=== PATIENT | female | born 1940 | race Caucasian/White ===

== ENCOUNTER 2019-12-10 17:55 | Emergency (ER) | payer MEDICARE ==
[~2019-12-10] VITALS: Ht 152.4 cm; Wt 54.0 kg
[2019-12-10 18:17] VITALS: BP 132/100
[2019-12-10] MEDS ORDERED: PLEASE ENTER ALLERGIES MC SCH (18:30)
--- NOTE | 2019-12-10 18:33 | NUR ---
PT STATES SUDDEN ONSET OF RT SIDED CP TODAY WELL A FEVER OF 100.8 AT HOME. 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 PT STATES SHE BELIEVES CP MAY BE FROM [place]ING [place]. PT WITH GREATLY DIMINSHED LUNG SOUNDS ON RT. IV STARTED, PT PLACED ON MONITORS. EKG COMPLETED. PT TO IMAGING. AWAITING LAB AND IMAGING RESULTS. PT IN NO DISTRESS. WILL FOLLOW ORDERS.
[2019-12-10 18:38] LABS: MEAN CORPUSCULAR HEMOGLOBIN 32.4 pg (27.0-34.8); MEAN CORPUSCULAR HGB CONC 33.5 g/dL (32.4-35.8); MEAN CORPUSCULAR VOLUME 96.9 fL (80-100); MEAN PLATELET VOLUME 7.4 fL (7.4-10.4); PLATELET COUNT 240 x10^3/uL (130-400); RED BLOOD COUNT 3.82 x10^6/uL (3.82-5.3); RED CELL DISTRIBUTION WIDTH 14.9 % (9.6-15.2)
[2019-12-10 18:47] LABS: ALANINE AMINOTRANSFERASE 18 U/L (12-78); ALBUMIN 3.6 g/dL (3.4-5.0); ANION GAP 7 mmol/L (5-15); CALCIUM 8.4 mg/dL (8.5-10.1); CHLORIDE 106 mmol/L (98-107); CREATININE 1.28 mg/dL (0.55-1.02)
[2019-12-10 18:51] LABS: ALKALINE PHOSPHATASE 62 U/L (45-117); BILIRUBIN,TOTAL 0.9 mg/dL (0.2-1.0); TOTAL PROTEIN 7.2 g/dL (6.4-8.2); TROPONIN I < 0.015 ng/mL (0.000-0.045)
--- NOTE | 2019-12-10 19:00 | NUR ---
REPORT GIVEN TO ROBERT ESPINO.
[2019-12-10 19:21] LABS: MD YES
[2019-12-10] MEDS ORDERED: SODIUM CHLORIDE FLUSH 10ML SYR IVF ONE (19:30)
[2019-12-10 19:31] LABS: BAND#(MANUAL) 0.73 x10^3/uL; BANDS%(MANUAL) 4 % (0-7); LYMPH#(MANUAL) 0.18 x10^3/uL (1-3.4); LYMPHS% (MANUAL) 1 % (22-44); METAMYELOCYTES# (MANUAL) 0.18 x10^3/uL (0-0); METAMYELOCYTES% (MANUAL) 1 % (0-1); MONOS#(MANUAL) 0.55 x10^3/uL (0.3-2.7); MONOS% (MANUAL) 3 % (2-9); SEG#(MANUAL) 16.65 x10^3/uL (1.8-6.8); SEGS% (MANUAL) 91 % (42-75)
[2019-12-10 19:33] LABS: <RBC MORPHOLOGY> NORMAL
[2019-12-10 19:34] LABS: <PLATELET ESTIMATE> ADEQUATE; <PLT MORPHOLOGY> NORMAL PLT MORPH; PMNS WITH VACUOLES 1+
--- NOTE | 2019-12-10 19:54 | NUR ---
AWAITING SONO AT THIS TIME.
--- NOTE | 2019-12-10 20:06 | NUR ---
PT GIVEN DC PAPERWORK AND POC DISCUSSED. PT REQUESTING FIRST DOSE OF MEDS HERE. AWAITING MD.
[2019-12-10] MEDS ORDERED: CEFDINIR 300 MG CAPSULE ONE (20:08)
[2019-12-10] MEDS ORDERED: AZITHROMYCIN 250 MG TABLET ONE (20:08)
--- NOTE | 2019-12-10 20:15 | NUR ---
PT MEDICATED WITH 500MG ZITHROMAX AND 300MG OMNICEF PER MD.
[2019-12-10] MEDS ORDERED: CEFDINIR 300 MG CAPSULE PO ONE (20:30)
[2019-12-10] MEDS ORDERED: AZITHROMYCIN 500 MG TABLET PO ONE (20:30)
== END 2019-12-10 20:17 | disposition home or self-care (01) ==
LOC: ED 19:45
DX: R07.89 Other chest pain (principal); J15.9 Unspecified bacterial pneumonia; I45.10 Unspecified right bundle-branch block; R10.11 Right upper quadrant pain
CPT/HCPCS: 36415; 74022; 80053; 83690; 83880; 84484; 85025; 93005; 99285